=== PATIENT | male | born 1980 | race Caucasian/White ===

== ENCOUNTER 2019-02-11 11:20 | Emergency (ER) | payer OTHER, BC ==
[2019-02-11] MEDS ORDERED: AMOX/K CLAV875 M1 PO (13:09)
[2019-02-11 13:28] VITALS: BP 176/90
== END 2019-02-11 13:28 | disposition home or self-care (01) | DRG 159 ==
LOC: ED 11:20
PROC: 0CQ1XZZ Repair Lower Lip, External Approach (ICD-10-PCS; principal; 2019-02-11)
DX: S01.511A Laceration without foreign body of lip, initial encounter (principal); W55.22XA Struck by cow, initial encounter